=== PATIENT | female | born 1955 | race Caucasian/White ===

== ENCOUNTER 2024-04-26 23:27 | Emergency (ER) | payer OTHER, SELFPAY ==
--- OUTSIDE RECORDS SUMMARY | 2024-04-26 23:29 | XMS_ITS | Clinical Summary ---
Author Organization [facility] Address [place], [place] [address] Care Team Providers Care Sales Product Manager Name Role Phone Godfrey Arriola MD Primary Care Provider [phone] Allergies Active Allergy Reactions Criticality Noted Date Comments Sulfamethoxazole-Trimethoprim Itching 2011 Clarithromycin Shortness Of Breath,Edema High 09/24/2015 Hydrochlorothiazide Hypokalemia,Hyponatr mila a 09/03/2016 Ibuprofen Stomach Upset 11/13/2015 Medications cetirizine (ZYRTEC) 10 mg tablet Take 1 tablet by mouth once daily. 0 05/06/19 18 Active Cyanocobalamin (VITAMIN B-12) 50 mcg tablet Take 500 mcg by mouth once daily. 0 08/05/19 19 Active Jvorr-5-XKI-EPA- Fish Oil 1,000 mg (120 mg-180 mg) cap Take 1 capsule by mouth. 0 08/05/19 19 Active Lactobacillus acidophilus (PROBIOTIC ACIDOPHILUS) 1.5 mg (250 million cell) cap Take by mouth. 0 10/29/19 20 Active ascorbic acid, vitamin C, (Vitamin C) 1,000 mg tablet Take 1 Tablet (1,000 mg) by mouth once daily. 0 07/30/19 22 Active vitamin E, dl,tocopheryl acet, (vitamin E, dl, acetate,) 100 unit capsule Take by mouth once daily. 0 07/30/19 22 Active beclomethasone dipropionate (Qvar RediHaler) 40 mcg/actuation HFA inhalerIndicatio ns:Mild persistent asthma without complication Inhale 2 Puffs by mouth two times daily. 3 Each 4 04/01/19 Active Additional Information Patient taking differently:2 Puff InhalationBID PRN, Wheezing, Shortness Of Breath, Reported on 03/16/2024 cholecalciferol (VITAMIN D3) 5,000 unit capsule Take 5,000 units by mouth once every other day. Active Active Problems Problem Noted Date Diagnosed Date Nuclear senile cataract of both eyes 01/10/2023 Dry eye syndrome of both eyes 01/10/2023 Colon polyp 04/05/2022 Overview (04/05/2022): Colonoscopy 03/2022 TA, repeat in 7 years Allergic conjunctivitis 03/05/2019 DDD (degenerative disc disease), cervical 2018 Chronic constipation 11/11/2016 Hyperopia of both eyes with astigmatism and pres byopia 11/13/2015 Trigger middle finger of right hand with retinac ular cyst 02/19/2015 H. pylori infection 02/19/2015 DDD (degenerative disc disease), lumbar 12/15/19 14 Overweight (BMI 25.0-29.9) 06/14/2012 Lateral epicondylitis of right elbow 11/29/2011 Closed fracture of unspecified part of fibula Fracture of ankle, lateral malleolus, left, clos ed 01/26/2010 Knee pain, left 12/25/2009 Overview (12/25/2009): Dec 25: left knee kenalog injection. GERD (gastroesophageal reflux disease) 0 Overview (07/30/2015): EGD 07/2015 normal, no H. pylori Allergic rhinitis, cause unspecified 05/19/2009 Unspecified asthma(493.90) 05/04/2008 Hypertension 12/14/2007 Resolved Problems Problem Noted Date Diagnosed Date Resolved Date HTN (hypertension) 05/04/2008 9 Overview (05/27/2009): Updated by system to replace inactive record Unspecified asthma(493.90) 12/14/2007 0 11/19/2008 health maintenance 05/07/2006 0 Overview (05/07/2006): v76.2 pap smear done on 07/13/02 v76.12 mammo done on v77.91 lipids done on 07/30/02 stress echo (nl) done on 04/09/03 Encounters Date Type Department Care Team Description 04/23/2024 10:20 AM ENVIRONMENTAL SERVICES PROJECT MANAGER Ancillary Procedure [facility] [address] [facility] [place] [address] Arrived 04/23/2024 8:45 AM ENVIRONMENTAL SERVICES PROJECT MANAGER Nurse/Clinic Staff Only [facility] [address] [facility] [place] [address] Immunization/Injecti on; Blood Pressure (168/90) 04/23/2024 Travel 03/16/2024 1:30 PM ENVIRONMENTAL SERVICES PROJECT MANAGER Office Visit [facility] [address] [facility] [place] [address] Godfrey Arriola MD Physical (68 years); Immunization/Injecti on 03/16/2024 Travel from Last 3 Months Immunizations Name Administration Dates Next Due AMB Influenza, IIV3 (Age >=3 years) Preserve Free (Flu Clinic Only) 01/27/2011 AMB Influenza, IIV3 (Age >=3 years)(Flu Clinic Only) 01/26/2008 COVID-19 VACCINE SPIKEVAX (M ODERNA 50MCG/0.5ML) 12YO+ PFS 03/16/2024 COVID-19 vaccine (Pfizer-Bio NTech 30mcg/0.3mL) 12YO+ BIVALENT PF, MDV 03/10/2022 COVID-19 vaccine (Pfizer-Bio NTech 30mcg/0.3mL) 12YO+ JACOB-SUCROSE PF, MDV 05/11/2021 COVID-19 vaccine (Pfizer-Bio NTech 30mcg/0.3mL) PF, MDV 07/16/2020,06/25/2020 Influenza A (H1N1), Inactiva halina (Age >=3 Years) 04/23/2009 Influenza, IIV3 (Age >=3 years) 01/19/20 13,11/29/2011,01/21/2010,2008,02/02/2006,02/17/2005 Influenza, IIV4 12/12/2015,10/31/2014,02/19/2014 Influenza, Inactivated AIIV4 (Age 65+ Years) Preserv Free 03/10/2022 Influenza, Inactivated IIV3 (Age 65+ Years) Preserv Free 03/16/2024 Pneumococcal Conj 20-valent (Prevnar 20) 04/23/2024 Td (Age >=7 Years) 07/13/2002 Tdap 04/23/2024,02/19/2014 Zoster (Shingrix-RZV, recombinant) 04/23/2024 Zoster (Zostavax-ZVL, live) 02/17/2015 Family History Medical History Relation Name Comments Diabetes type II Brother 1 Diabetes type II Brother 2 Asthma Father Diabetes Father Heart Disease Father CABG Hypertension Father Asthma Grandchild Diabetes Mother Hypertension Mother Hypertension Son Cancer-breast No Family History Cancer-ovarian No Family History Relation Name Status Comments Brother 1 Alive Brother 2 Alive Father Grandchild Mother Sister Alive Son Alive Social History Tobacco Use Types Packs/Day Years Used Date Smoking Tobacco: Never Smokeless Tobacco: Never Tobacco Cessation:Counseling Given: Not Answered Alcohol Use Standard Drinks/Week Comments No 0 (1 standard drink = 0.6 oz pur e alcohol) PHQ-2 Answer Date Recorded PHQ-2 TOTAL SCORE 0 03/16/2024 Social Connections Answer Date Recorded Frequency of Communication with Friends and Fami ly Not on file 03/14/2021 Financial Resource Strain Answer Date R ecorded Difficulty of Paying Living Expenses Not on file 03/14/2021 Difficulty of Paying Living Expenses Not on file 03/14/2021 Comments No Sex and Gender Information Value Date Recorded Sex Assigned at Not on file Legal Sex Female 5:27 AM ENVIRONMENTAL SERVICES PROJECT MANAGER Gender Identity Not on file Sexual Orientation Not on file Obstetrics History Last Filed Vital Signs Vital Sign Reading Time Taken Comments Blood Pressure 148/76 03/16/2024 2:21 PM ENVIRONMENTAL SERVICES PROJECT MANAGER Pulse 75 03/16/2024 1:38 PM ENVIRONMENTAL SERVICES PROJECT MANAGER Temperature 36.6 C (97.9 F) 03/16/2024 1:38 PM ENVIRONMENTAL SERVICES PROJECT MANAGER Respiratory Rate 18 08/10/2018 11:3 1 AM CDT Oxygen Saturation 100% 03/16/2024 1:38 PM ENVIRONMENTAL SERVICES PROJECT MANAGER Inhaled Oxygen Concentration - - Weight 61.1 kg (134 lb 11.2 oz) 03/16/2024 1:38 PM ENVIRONMENTAL SERVICES PROJECT MANAGER Height 153.5 cm (5' 0.43) 03/16/2024 1:38 PM CS T Body Mass Index 25.93 03/16/2024 1:38 PM ENVIRONMENTAL SERVICES PROJECT MANAGER Plan of Treatment Upcoming Encounters Date Type Department Care Team (Late st Contact Info) Description 05/21/2024 10:00 AM CDT Nurse/Clinic Staff Only [facility] [address] [place] [address] Health Maintenance Due Date Last Done Comments Zoster (shingles) series for age 50+ (3 of 3) 06/18/2024 04/23/2024, 02/17/2015 BMI (ht and wt on same day) for age 18+ 03/16/2025 03/16/2024, 03/10/2022, 07/29/2021, Additional history exists Depression screening for age 12+ 04/23/2025 04/23/2024, 03/16/2024, 11/01/2019, Additional history exists Mammogram for age 45-75 04/23/2025 04/23/19, 11/18/2021, 10/29/2019, Additional history exists Lipids for age 45-75 03/16/2029 03/16/2024, 08/07/2021, 10/29/2019, Additional history exists Colonoscopy through age 75 04/02/202904/02, 04/02/2022, 04/02/2022 RSV vaccine for adults or (1 - 1-dose 75+ series) 2029 Tetanus booster 04/23/2034 04/23/2024, 1211/2013, 07/13/2002 Hepatitis C screening for ag e 18-79 Completed 10/29/2019 DEXA/DXA scan for age 65+ Completed 08/17/2021, COVID-19 vaccine series Completed 03/16/19, 03/10/2022, 05/11/2021, Additional history exists Influenza for age 65+ Completed 03/16/2024 , 03/10/2022, 12/12/2015, Additional history exists Pneumococcal series for age 50+ Completed Tdap Completed 04/23/2024, 02/19/2014 Procedures Procedure Name Priority Date/Time Associated Diagnosis Comments XR MAMMO BILAT SCREENING Routine 04/23/2024 10:27 AM ENVIRONMENTAL SERVICES PROJECT MANAGER Visit for screening mammogram LIPID PANEL W REFLEX MEASURED LDL Routine 03/16/2024 2:30 PM ENVIRONMENTAL SERVICES PROJECT MANAGER Lipid screening HEMOGLOBIN A1C Routine 03/16/2024 2:30 PM ENVIRONMENTAL SERVICES PROJECT MANAGER Prediabetes COLONOSCOPY 04/02/2022 7:50 AM ENVIRONMENTAL SERVICES PROJECT MANAGER XR DXA BONE DENSITY 2 SITES AXIAL Routine 08/17/2021 11:18 AM CDT Postmenopausal ANTI HCV Routine 10/29/2019 2:09 PM CDT Need for hepatitis C screening test from Last 3 Months or Most Recently Relevant to Health Maintenance Results * XR MAMMO BILAT SCREENING (04/23/2024 10:27 AM ENVIRONMENTAL SERVICES PROJECT MANAGER) Anatomical Region Laterality Modality BREASTS, Breast Left, Breast Right Bilateral Mammography Impressions 04/23/2024 11:25 AM ENVIRONMENTAL SERVICES PROJECT MANAGER There is no radiographic evidence for malignancy. Recommend annual mammograms. MAMMOGRAM ASSESSMENT: ACR 1 Negative PATIENTS: You will also receive a letter with your examination results in an easy to read format. If you have questions about your results, please contact your referring provider. Narrative 04/23/2024 11:25 AM ENVIRONMENTAL SERVICES PROJECT MANAGER For Patients: As a result of the 21st Century Cures Act, medical imaging exams and procedure reports are released immediately into your electronic medical record. You may view this report before your referring provider. If you have questions, please contact your health care provider. XR MAMMO BILAT SCREENING [[id number]] CLINICAL HISTORY: This is an asymptomatic 68 y.o. patient. INDICATION FOR EXAM: Mammogram Screening. TECHNIQUE: CC & MLO views were obtained. This study was evaluated with the assistance of Computer-Aided Detection. COMPARISON FILM: Yes 11/18/21 [facility] 10/29/19 [facility] FINDINGS: There are scattered areas of fibroglandular density. There are no dominant masses, suspicious micro calcifications or areas of architectural distortion. Godfrey Arriola MD MAMMO Final Resu lt * (ABNORMAL) HEMOGLOBIN A1C (03/16/2024 2:30 PM ENVIRONMENTAL SERVICES PROJECT MANAGER) HEMOGLOBIN A1C 6.0(H) <5.7 % of total Hgb [facility] Comment: For someone without known diabetes, a hemoglobin A1c value between 5.7% and 6.4% is consistent with prediabetes and should be confirmed with a follow-up test. For someone with known diabetes, a value <7% indicates that their diabetes is well controlled. A1c targets should be individualized based on duration of diabetes, age, comorbid conditions, and other considerations. This assay result is consistent with an increased risk of diabetes. Currently, no consensus exists regarding use of hemoglobin A1c for diagnosis of diabetes for children. Blood BLOOD SPECIMEN / Unknown 03/16/2024 2:30 PM ENVIRONMENTAL SERVICES PROJECT MANAGER 03/16/2024 2:30 PM ENVIRONMENTAL SERVICES PROJECT MANAGER Godfrey Arriola MD CHEMISTRY Final Resu lt [facility] [address] [place] [address], [facility] [address] [place] [address] * (ABNORMAL) LIPID PANEL W REFLEX MEASURED LDL (03/16/2024 2:30 PM ENVIRONMENTAL SERVICES PROJECT MANAGER) CHOLESTEROL, TOTAL 198 <200 mg/dL [facility] HDL CHOLESTEROL 79 > OR = 50 mg/dL [facility] TRIGLYCERIDES 89 <150 mg/dL [facility] LDL-CHOLESTEROL 101(H) mg/dL (calc) [facility] Comment: Reference range: <100 Desirable range <100 mg/dL for primary prevention; <70 mg/dL for patients with CHD or diabetic patients with > or = 2 CHD risk factors. LDL-C is now calculated using the Jimbo-Garcia calculation, which is a validated novel method providing better accuracy than the Friedewald equation in the estimation of LDL-C. Jimbo FULLER et al. EVELIO. 2013;310(19): 7673-3589 (http://education.Algaeon.RealOps/faq/KWO799) CHOL/HDLC RATIO 2.5 <5.0 (calc) [facility] NON HDL CHOLESTEROL 119 <130 mg/dL (calc) [facility] Comment: For patients with diabetes plus 1 major ASCVD risk factor, treating to a non-HDL-C goal of <100 mg/dL (LDL-C of <70 mg/dL) is considered a therapeutic option. Blood BLOOD SPECIMEN / Unknown 03/16/2024 2:30 PM ENVIRONMENTAL SERVICES PROJECT MANAGER 03/16/2024 2:30 PM ENVIRONMENTAL SERVICES PROJECT MANAGER us Godfrey Arriola MD CHEMISTRY Final Resu lt [facility] [address] [place] [address], [facility] [address] [place] [address] * COLONOSCOPY (04/02/2022 7:50 AM ENVIRONMENTAL SERVICES PROJECT MANAGER) 04/02/2022 7:50 AM ENVIRONMENTAL SERVICES PROJECT MANAGER Narrative Transcriptions Jimbo Holland MD - 04/02/2022 9:09 AM CST Patient Name: Kiraa Worley Procedure Date: 04/02/2022 Gender: Female Date of : 1955 Admit Type: Outpatient Procedure: Colonoscopy Proceduralist: Jimbo Holland MD , Anastacia Reyes (Nurse), Eloise Romero (Nurse) Referring MD: Godfrey Arriola Indications/Pre-Op Diagnosis: Screening for colorectal malignant neoplasm, This is the patient's first colonoscopy Medications: Fentanyl 100 micrograms IV, Midazolam 3 mgIV, The level of sedation administered wasmoderate Procedure Description: The patient had risks, benefits and alternatives explained to andgave informed consent. The patient had a stable cardiopulmonary status and judged an adequate candidate for conscious sedation. The endoscope PCF-[id number] [id number] was passed through the anus andadvanced to the cecum, identified by appendiceal orifice and ileocecal valve.The colonoscopy was performed without difficulty. The patient toleratedthe procedure well. The quality of the bowel preparation was good. The ileocecal valve, appendiceal orifice, and rectum were photographed. Complications: No immediate complications. Estimated Blood Loss & Specimen: Estimated blood loss: none. Specimen collected - Yes and sent to Laboratory Findings: The perianal and digital rectal examinations were normal. A 3 mm polyp was found in the transverse colon. The polyp wassessile. The polyp was removed with a cold biopsy forceps. Resection and retrieval were complete. Multiple small-mouthed diverticula were found in the sigmoid colon. The exam was otherwise without abnormality on direct and retroflexion views. Impressions/Post-Op Diagnosis: - One 3 mm polyp in the transverse colon, removed with a cold biopsy forceps. Resected and retrieved. - Diverticulosis in the sigmoid colon. - The examination was otherwise normal on direct and retroflexionviews. Recommendation: - Patient has a contact number available for emergencies. The signsand symptoms of potential delayed complications were discussed with the patient. Return to normal activities tomorrow. Written discharge instructions were provided to the patient. - Resume previous diet. - Continue present medications. - Await pathology results. - Repeat colonoscopy is recommended. The colonoscopy date will be determined after pathology results from today's exam become available for review. Moderate Sedation: A time out was performed before the procedure. Moderate (conscious) sedation was administered by the endoscopy nurse and supervised bythe endoscopist. The following parameters were monitored: oxygensaturation, heart rate, blood pressure, EKG, CO2, respiratory rate, adequacy of pulmonary ventilation and reponse to care. Please refer to the patient's medical record flowsheets and nursing notes for moderate sedation details. Total physician intraservice time was 26 minutes. Jimbo Holland MD 04/02/2022 9:09:00 AM This report has been signed electronically. Note Initiated On: 04/02/2022 7:50 AM Procedure Code(s): --- Professional --- 18785, Colonoscopy, flexible; with biopsy, single or multiple Diagnosis Code(s): --- Professional --- Z12.11, Encounter for screening formalignant neoplasm of colon D12.3, Benign neoplasm of transverse colon (hepatic flexure or splenic flexure) K57.30, Diverticulosis of large intestine without perforation or abscess withoutbleeding CPT copyright 2020 [employer]. All rights reserved. The codes documented in this report are preliminary and upon breaking machine operator reviewmay be revised to meet current compliance requirements. Scope In: 8:38:04 AM Scope Withdrawal Time 0 hours 9 minutes 30 seconds Scope Out: 9:02:50 AM us Jimbo Holland MD PROCEDURE ORD Final Res ult * (ABNORMAL) XR DXA BONE DENSITY 2 SITES AXIAL [89056.1] (08/17/2021 11:18 AM CDT) Anatomical Region Laterality Modality Spine, HIPS, HIPL, HIPR Other Impressions 08/19/2021 7:48 AM CDT Osteopenia. RECOMMENDATIONS: The National Osteoporosis Foundation recommends pharmacologic treatment for patients with T-scores of -2.5 or less, patients with prior history of fragility fractures, or patients with 10-year probability of greater than 3% at hips or greater than 20% of suffering major osteoporotic fractures. Recommend continued optimization of calcium and vitamin D intake through dietary means and/or supplementation and regular exercise. Repeat scan recommended in 3-5 years. Misty Dixon PA-C [facility] 08/19/2021 Narrative 08/19/2021 7:48 AM CDT For Patients: Results are automatically released to your [facility] (sourceasy) account once available, in compliance with federal regulations. This means that you may see your results before your provider has had a chance to review them. Please allow 2-3 business days for your provider to comment on the results. XR DXA Bone Mineral Density (BMD) EXAM LOCATION: [facility] [address] [facility] [address] PATIENT NAME: Kiara Worley DATE OF : 1955 EXAM DATE: 08/17/2021 REQUESTING PROVIDER: Godfrey Arriola MD GENDER AT : female HEIGHT: 5' 0.24 (07/29/2021) WEIGHT: 139 lb 6.4 oz (07/29/2021) MENOPAUSAL STATUS: Postmenopausal RACE/ETHNICITY: Patient Declined White RISK FACTORS: No Risk Factors CURRENT MEDICATION FOR BONE LOSS: NONE INDICATION: Post-Menopause COMPARISON DATE(S): 2009 DXA scans are compared to prior studies for a patient only when the two (or more) studies were performed on the same scanner. It is not possible to compare data generated on one scanner to data from another because there are not standards in DXA equipment. This applies even if the two scanners are made by the same collection systems administrator. PROCEDURE: Dual-energy x-ray absorptiometry performed with routine technique. Reporting is completed in the form of a T-score. The T-score represents the standard deviation from peak bone mass based on young healthy adult. A Z-score is used for diagnosis in premenopausal women, and for men under the age of 50. FINDINGS: RESULT LUMBAR SPINE L1 - L4 BMD: 1.123 g/cm2 T-Score: - 0.6 Z-Score: + 1.1 Change from prior in 2009: Increase 0.1%. RESULTS FEMUR Left femoral neck BMD: 0.794 g/cm2 T-Score: - 1.8 Z-Score: - 0.2 Change from prior in 2009: Decrease 13.4%. Right femoral neck BMD: 0.755 g/cm2 T-Score: - 2.0 Z-Score: - 0.4 Change from prior in 2009: Decrease 15.7%. Left hip BMD: 0.942 g/cm2 T-Score: - 0.5 Z-Score: + 0.8 Change from prior in 2010: Decrease 12.8%. Right hip BMD: 0.940 g/cm2 T-Score: - 0.5 Z-Score: + 0.8 Change from prior in 2009: Decrease 12.6%. WHO criteria: Normal: T-score at or above -1 SD Osteopenia: T-score between -1.1 and -2.4 SD Osteoporosis: T-score at or below -2.5 SD FRAX RISK CALCULATION (USED FOR OSTEOPENIA ONLY): 10-year probability of major osteoporotic fracture: 6.5%. 10-year probability of hip fracture: 1.1%. Godfrey Arriola MD DEXA Final Resu lt * ANTI HCV (10/29/2019 2:09 PM CDT) HEPATITIS C ANTIBODY Non-React kay Non-React kay 10/29/2019 8:53 PM CDT [facility] [employer] [facility] Comment:Antibodies to HCV no t detected; does not exclude the possibility of exposure to HCV. Blood BLOOD SPECIMEN / Unknown Venipuncture / Unknown 10/29/2019 2:09 PM CDT 10/29/2019 2:09 PM CDT Godfrey Arriola MD SEND OUTS Final Resu lt [facility] [address] [place] [address], [place] from Last 3 Months or Most Recently Relevant to Health Maintenance Insurance [facility] ATTN: [place] [address] Advance Directives * Full Code (Latest Code Status on File) Date Activated Date Inactivated Comments 04/04/2015 9:23 AM 04/04/2015 11:47 AM Question Answer Comments Code Status Discussion: Per Existing Order * Full Code Date Activated Date Inactivated Comments 04/03/2015 8:25 AM 04/04/2015 9:23 AM Question Answer Comments Code Status Discussion: Per Existing Order Care Teams Sales Product Manager Relationship Specialty Start Date End Date Godfrey Arriola MD [place] [address] PCP - General 10/21/08
[2024-04-26 23:35] VITALS: BP 208/74; PULSE 70; RESP 16; TEMP 36.6; O2SAT 99; BMI 26.0
[2024-04-26 23:45] VITALS: BP 186/78; PULSE 69; RESP 16; O2SAT 100
--- NOTE | 2024-04-27 00:06 | ED.CHESTPAIN ---
HPI - Chest Pain General Chief Complaint: Chest Pain Stated Complaint: left arm pain, chest pain, high blood pressure Time Seen by Provider: 04/26/24 23:48 History of Present Illness HPI narrative: Patient is a 68-year-old woman with history of hypertension you takes only vitamins. She had a flu shot 3 days ago and since that time has had constant chest pain increased anxiety left arm aching and fatigue. She has been following her blood pressure at home and has noted to be high. She has had no fevers no chills no night sweats no cough no shortness of breath. Patient is in to make sure everything is okay and she has been extremely anxious. The chest pain is in the mid chest with no diaphoresis no nausea no vomiting 3/10 in intensity. EKG done upon arrival upon my review shows normal sinus rhythm no ST or T-wave changes. Point of care troponin done is time right oval is negative. Related Data Home Medications ?Medication ?Instructions ?Recorded ?Confirmed No Known Home Medications 04/26/24 04/26/24 Allergies Allergy/AdvReac Type Severity Reaction Status Date / Time clarithromycin Allergy Verified 04/26/24 23:44 ibuprofen Allergy Verified 04/26/24 23:44 sulfamethoxazole Allergy Verified 04/26/24 23:44 trimethoprim (From Bactrim) Allergy Verified 04/26/24 23:44 Review of Systems Status of ROS Reports: 10 or more systems reviewed and unremarkable except as noted in History and below Exam Narrative Exam Narrative: EXAM GENERAL: Patient appears comfortable and well. EYES: No scleral icterus. LYMPH: No supraclavicular or cervical lymphadenopathy. SKIN: Visible skin seen during exam normal or with benign process only. EXT: No dependent lower extremity pedal edema. HEART: Regular rate and rhythm with no murmurs, rubs, or gallops. LUNGS: Clear to auscultation bilaterally with no crackles or wheezes. ABD: Soft, non tender, non distended. PSYCH: Good eye contact, speech is not pressured. Const Vital Signs, click to edit/add: Vital Signs - 24 hr 04/26/24 23:35 04/26/24 23:45 Temperature 98 F Pulse Rate [Pulse Oximeter] 70 69 Respiratory Rate 16 16 Blood Pressure [Right Upper Arm] 208/74 H 186/78 H Pulse Oximetry 99 100 Oxygen Delivery Method Room Air Room Air Course Course ED Course: Patient seen and examined. EKG reviewed. Vital Signs Vital signs: Initial Vital Signs Respiratory Effort Normal 04/26/24 23:28 Respiratory Depth Normal 04/26/24 23:28 Respiratory Pattern Normal 04/26/24 23:28 Vital Signs Temperature 98 F 04/26/24 23:35 Pulse Rate 70 04/26/24 23:35 Respiratory Rate 16 04/26/24 23:35 Blood Pressure 208/74 H 04/26/24 23:35 Pulse Oximetry 99 04/26/24 23:35 Oxygen Delivery Method Room Air 04/26/24 23:35 Temperature 98 F 04/26/24 23:35 Pulse Rate 69 04/26/24 23:45 Respiratory Rate 16 04/26/24 23:45 Blood Pressure 186/78 H 04/26/24 23:45 Pulse Oximetry 100 04/26/24 23:45 Oxygen Delivery Method Room Air 04/26/24 23:45 MDM - Chest Pain MDM Narrative Medical decision making narrative: Patient presents with 3 days chest pain. He does have chronic hypertension and appears quite anxious. She had a negative troponin negative cbc and electrolytes with the exception of a sodium 125. I suspect that this is not a new finding for the patient. I did advise her to limit her fluid intake and to follow-up closely with her primary physician within the next week. I do suspect most of her symptoms to be related to anxiety and have nothing to do with her low-sodium Chest x-ray negative upon my review. This point I do not believe cerebral troponins were necessary reassurance is offered I did recommend primary care follow-up. Differential diagnosis includes but not limited to unstable angina acute myocardial infarction chest wall pain pneumothorax pleural effusion pneumonia. Lab Data Labs: Lab Results 04/27/24 Range/Units 00:00 WBC 6.90 (4.50-11.00) K/uL RBC 4.45 (4.00-5.20) m/uL Hgb 13.2 (12.0-16.0) gm/dL Hct 38.9 (33.0-51.0) % MCV 87 (80-100) fL MCH 30 (26-34) pg MCHC 34 (32-36) gm/dL RDW Coeff of Yomi 12.1 (11.5-15.5) % Plt Count 237 (140-440) K/uL Neut % (Auto) 43.9 (42.0-72.0) % Lymph % (Auto) 43.2 (20-44) % Conway % (Auto) 9.6 (0.0-11.0) % Eos % (Auto) 2.3 (0.0-7.0) % Baso % (Auto) 0.4 (0.0-3.0) % Neut # (Auto) 3.03 (1.7-7.0) K/uL Lymph # (Auto) 2.98 H (0.90-2.90) K/uL Conway # (Auto) 0.70 (0.00-0.90) K/UL Eos # (Auto) 0.16 (0.00-0.50) K/uL Baso # (Auto) 0.03 (0.00-0.30) K/uL Abs Immat Gran (auto) 0.04 (0.00-0.30) K/uL Imm/Tot Granulo (auto) 0.6 % Sodium 125 L (135-149) mmol/L Potassium 4.1 (3.6-5.1) mmol/L Chloride 89 L (96-114) mmol/L Carbon Dioxide 24 (20-32) mmol/L Anion Gap 12 (7-15) mEq/L BUN 15 (7-30) mg/dL Creatinine 0.6 (0.5-1.5) mg/dL Estimated Creat Clear 38.14 Estimated GFR 97 ml/min Discharge Plan Discharge Clinical Impression: Chest pain, Chronic hyponatremia Patient Disposition: Home, Self-Care Condition: Stable Instructions: Chest Pain (ED) Additional Instructions: Continue current medication Follow-up with your doctor for chronic management of elevated blood pressure. Activity Level: No Restrictions Discharge Diet: Regular Prescriptions: No Action No Known Home Medications Follow Up/Referrals: Godfrey Arriola MD [Primary Care Provider] - Stand Alone Forms: Targeted Growth Info Instructions
[2024-04-27 00:17] LABS: Basophils Absolute Auto 0.03 K/uL (0.00-0.30); Basophils Percent Auto 0.4 % (0.0-3.0); Eosinophils Absolute Auto 0.16 K/uL (0.00-0.50); Eosinophils Percent Auto 2.3 % (0.0-7.0); Hematocrit 38.9 % (33.0-51.0); Hemoglobin* 13.2 gm/dL (12.0-16.0); Immature Granulocytes Abs Auto 0.04 K/uL (0.00-0.30); Immature Granulocytes Pct Auto 0.6 %; Lymphocytes Absolute Auto 2.98 K/uL (0.90-2.90); Lymphocytes Percent Auto 43.2 % (20-44); Mean Corpuscular HGB Conc 34 gm/dL (32-36); Mean Corpuscular Hemoglobin 30 pg (26-34); Mean Corpuscular Volume 87 fL (80-100); Monocytes Percent Auto 9.6 % (0.0-11.0); Neutrophils Absolute Auto 3.03 K/uL (1.7-7.0); Neutrophils Percent Auto 43.9 % (42.0-72.0); Platelet Count* 237 K/uL (140-440); RDW Coefficient of Variation % 12.1 % (11.5-15.5); Red Blood Count 4.45 m/uL (4.00-5.20)
--- OUTSIDE RECORDS SUMMARY | 2024-04-27 00:18 | XMS_ITS | Clinical Summary ---
Author Organization [facility] Address [place], [place] [address] Care Team Providers Care Body Trimmer Upholsterer Name Role Phone Godfrey Arriola MD Primary Care Provider [phone] Allergies Active Allergy Reactions Criticality Noted Date Comments Sulfamethoxazole-Trimethoprim Itching 2011 Clarithromycin Shortness Of Breath,Edema High 09/24/2015 Hydrochlorothiazide Hypokalemia,Hyponatr mila a 09/03/2016 Ibuprofen Stomach Upset 11/13/2015 Medications cetirizine (ZYRTEC) 10 mg tablet Take 1 tablet by mouth once daily. 0 05/06/19 18 Active Cyanocobalamin (VITAMIN B-12) 50 mcg tablet Take 500 mcg by mouth once daily. 0 08/05/19 19 Active Zbzkd-4-LDU-EPA- Fish Oil 1,000 mg (120 mg-180 mg) [...] Department Care Team Description 04/23/2024 10:20 AM WARM IN WORKER Ancillary Procedure [facility] [address] [facility] [place] [address] Arrived 04/23/2024 8:45 AM WARM IN WORKER Nurse/Clinic Staff Only [facility] [address] [facility] [place] [address] Immunization/Injecti on; Blood Pressure (168/90) 04/23/2024 Travel 03/16/2024 1:30 PM WARM IN WORKER Office Visit [facility] [address] [facility] [place] [address] Godfrey Arriola MD Physical (68 years); Immunization/Injecti [...] on file Legal Sex Female 5:27 AM WARM IN WORKER Gender Identity Not on file Sexual Orientation Not on file Obstetrics History Last Filed Vital Signs Vital Sign Reading Time Taken Comments Blood Pressure 148/76 03/16/2024 2:21 PM WARM IN WORKER Pulse 75 03/16/2024 1:38 PM WARM IN WORKER Temperature 36.6 C (97.9 F) 03/16/2024 1:38 PM WARM IN WORKER Respiratory Rate 18 08/10/2018 11:3 1 AM CDT Oxygen Saturation 100% 03/16/2024 1:38 PM WARM IN WORKER Inhaled Oxygen Concentration - - Weight 61.1 kg (134 lb 11.2 oz) 03/16/2024 1:38 PM WARM IN WORKER Height 153.5 cm (5' 0.43) 03/16/2024 1:38 PM CS T Body Mass Index 25.93 03/16/2024 1:38 PM WARM IN WORKER Plan of Treatment Upcoming Encounters Date Type Department Care Team (Late st Contact Info) Description 05/21/2024 10:00 AM CDT Nurse/Clinic Staff Only [facility] [address] [place] [address] Health Maintenance Due Date Last Done Comments [...] MAMMO BILAT SCREENING Routine 04/23/2024 10:27 AM WARM IN WORKER Visit for screening mammogram LIPID PANEL W REFLEX MEASURED LDL Routine 03/16/2024 2:30 PM WARM IN WORKER Lipid screening HEMOGLOBIN A1C Routine 03/16/2024 2:30 PM WARM IN WORKER Prediabetes COLONOSCOPY 04/02/2022 7:50 AM WARM IN WORKER XR DXA BONE DENSITY 2 SITES AXIAL Routine 08/17/2021 11:18 AM CDT Postmenopausal ANTI HCV Routine 10/29/2019 2:09 PM CDT Need for hepatitis C screening test from Last 3 Months or Most Recently Relevant to Health Maintenance Results * XR MAMMO BILAT SCREENING (04/23/2024 10:27 AM WARM IN WORKER) Anatomical Region Laterality Modality BREASTS, Breast Left, Breast Right Bilateral Mammography Impressions 04/23/2024 11:25 AM WARM IN WORKER There is no radiographic evidence for malignancy. Recommend annual mammograms. MAMMOGRAM ASSESSMENT: ACR 1 Negative PATIENTS: You will also receive a letter with your examination results in an easy to read format. If you have questions about your results, please contact your referring provider. Narrative 04/23/2024 11:25 AM WARM IN WORKER For Patients: As a result of the 21st Century Cures Act, medical imaging exams and procedure reports are released immediately into your electronic medical record. You may view this report before your referring provider. If you have questions, please contact your health care provider. XR MAMMO BILAT SCREENING [[id number]] CLINICAL HISTORY: This is an asymptomatic 68 [...] * (ABNORMAL) HEMOGLOBIN A1C (03/16/2024 2:30 PM WARM IN WORKER) HEMOGLOBIN A1C 6.0(H) <5.7 % of total [...] BLOOD SPECIMEN / Unknown 03/16/2024 2:30 PM WARM IN WORKER 03/16/2024 2:30 PM WARM IN WORKER Godfrey Arriola MD CHEMISTRY Final Resu lt [facility] [address] [place] [address], [facility] [address] [place] [address] * (ABNORMAL) LIPID PANEL W REFLEX MEASURED LDL (03/16/2024 2:30 PM WARM IN WORKER) CHOLESTEROL, TOTAL 198 <200 mg/dL [facility] [...] LDL-C. Jimbo FULLER et al. EVELIO. 2013;310(19): 0332-3799 (http://education.Madefire.Derivix/faq/FMK104) CHOL/HDLC RATIO 2.5 <5.0 (calc) [facility] NON HDL CHOLESTEROL 119 <130 mg/dL (calc) [facility] Comment: For patients with diabetes plus 1 major ASCVD risk factor, treating to a non-HDL-C goal of <100 mg/dL (LDL-C of <70 mg/dL) is considered a therapeutic option. Blood BLOOD SPECIMEN / Unknown 03/16/2024 2:30 PM WARM IN WORKER 03/16/2024 2:30 PM WARM IN WORKER us Godfrey Arriola MD CHEMISTRY Final Resu lt [employer] [facility] [address] [place] [address], [facility] [address] [place] [address] * COLONOSCOPY (04/02/2022 7:50 AM WARM IN WORKER) 04/02/2022 7:50 AM WARM IN WORKER Narrative Transcriptions Jimbo Holland MD - 04/02/2022 9:09 AM CST Patient Name: Kiara Worley Procedure Date: 04/02/2022 Gender: Female Date [...] candidate for conscious sedation. The endoscope [id number] was passed through the anus andadvanced to [...] 7:50 AM Procedure Code(s): --- Professional --- 67449, Colonoscopy, flexible; with biopsy, single or multiple Diagnosis Code(s): --- Professional --- Z12.11, Encounter for screening formalignant neoplasm of colon D12.3, Benign neoplasm of transverse colon (hepatic flexure or splenic flexure) K57.30, Diverticulosis of large intestine without perforation or abscess withoutbleeding CPT copyright 2020 [employer]. All rights reserved. The codes documented in this report are preliminary and upon radio installer automobile reviewmay be revised to meet current compliance requirements. Scope In: 8:38:04 AM Scope Withdrawal Time 0 hours 9 minutes 30 seconds Scope Out: 9:02:50 AM us Jimbo Holland MD PROCEDURE ORD Final Res ult * (ABNORMAL) XR DXA BONE DENSITY 2 SITES AXIAL [95105.1] (08/17/2021 11:18 AM CDT) Anatomical Region Laterality [...] recommended in 3-5 years. Misty Dixon PA-C [facility] 08/19/2021 Narrative 08/19/2021 7:48 AM CDT For Patients: Results are automatically released to your [facility] ([employer]) account once available, in compliance with federal regulations. This means that you may see your results before your provider has had a chance to review them. Please allow 2-3 business days for your provider to comment on the results. XR DXA Bone Mineral Density (BMD) EXAM LOCATION: [facility] [address] [facility] [address] PATIENT NAME: Kiara Worley DATE OF : [...] two scanners are made by the same estate planning counselor. PROCEDURE: Dual-energy x-ray absorptiometry performed with routine [...] kay Non-React kay 10/29/2019 8:53 PM CDT [facility] Comment:Antibodies to HCV no t detected; does not exclude the possibility of exposure to HCV. Blood BLOOD SPECIMEN / Unknown Venipuncture / Unknown 10/29/2019 2:09 PM CDT 10/29/2019 2:09 PM CDT Godfrey Arriola MD SEND OUTS Final Resu lt [facility] [address] [place] [address], [place] from Last 3 Months or Most Recently Relevant to Health Maintenance Insurance [facility] ATTN: [place] [address] Advance Directives * Full Code (Latest Code Status on File) Date Activated Date Inactivated Comments 04/04/2015 9:23 AM 04/04/2015 11:47 AM Question Answer Comments Code Status Discussion: Per Existing Order * Full Code Date Activated Date Inactivated Comments 04/03/2015 8:25 AM 04/04/2015 9:23 AM Question Answer Comments Code Status Discussion: Per Existing Order Care Teams Body Trimmer Upholsterer Relationship Specialty Start Date End Date Godfrey Arriola [place] [address] [place] [address] PCP - General 10/21/08
[2024-04-27 00:27] LABS: Chloride* 89 mmol/L (96-114); Potassium* 4.1 mmol/L (3.6-5.1); Sodium* 125 mmol/L (135-149)
[2024-04-27 00:30] LABS: Anion Gap 12 mEq/L (7-15); Blood Urea Nitrogen* 15 mg/dL (7-30); Carbon Dioxide* 24 mmol/L (20-32); Creatinine* 0.6 mg/dL (0.5-1.5); Est. Creatinine Clearance* 38.14; Estimated Glomerular Filt Rate 97 ml/min; Slide Review Reflex No
[2024-04-27 00:44] LABS: Calcium* 9.4 mg/dL (8.4-10.6); Glucose* 80 mg/dL (60-115); Troponin I* < 0.01 ng/mL (0.01-0.04)
== END 2024-04-27 00:47 | disposition home or self-care (01) ==
PROVIDERS: Emergency Provider Internal Medicine; PCP Family Medicine
DX: R07.9 Chest pain, unspecified (principal); E87.1 Hypo-osmolality and hyponatremia
CPT/HCPCS: 36415; 71045; 80048; 84484; 85025; 99283; 99284